=== PATIENT | male | born 1960 | race Caucasian/White ===

== ENCOUNTER 2021-10-01 04:03 | Emergency (ER) | payer BC ==
[~2021-10-01] VITALS: Ht 175.3 cm; Wt 95.5 kg
[2021-10-01 05:12] LABS: BASO # 0.04 K/mm3 (0.02-0.10); EOS # 0.14 K/mm3 (0.04-0.40); EOS % 2.2 % (0.0-4.0); HEMATOCRIT 44.7 % (42.0-52.0); HEMOGLOBIN 14.5 g/dL (13.5-18.0); MEAN CELL VOLUME 97 fl (78-100); MEAN CORPUSCULAR HEMOGLOBIN 31 pg (27-31); MEAN CORPUSCULAR HGB CONC 32 g/dL (33-37); MEAN PLATELET VOLUME 9.5 fl (7.4-10.4); MONO # 0.55 K/mm3 (0.20-0.80); NEU # 4.32 K/mm3 (1.40-6.50); PLATELET COUNT 300 K/mm3 (130-400); RED BLOOD COUNT 4.63 M/mm3 (4.20-5.60); RED CELL DISTRIBUTION WIDTH 12.7 % (11.5-14.5); WHITE BLOOD COUNT 6.3 K/mm3 (4.8-10.8)
[2021-10-01 05:20] LABS: ALBUMIN 3.4 g/dL (3.4-4.8)
[2021-10-01 05:21] LABS: POTASSIUM 4.1 mmol/L (3.5-5.1)
[2021-10-01 05:22] LABS: CALCIUM 8.7 mg/dL (8.3-10.5)
[2021-10-01 05:23] LABS: TOTAL PROTEIN 6.2 g/dL (6.2-8.1)
[2021-10-01 05:25] LABS: TOTAL BILIRUBIN 0.3 mg/dL (0.2-1.2)
[2021-10-01 06:19] LABS: URINE WBC 0 /hpf (0-3)
[2021-10-01 06:46] LABS: URINE APPEARANCE HAZY; URINE COLOR YELLOW
[2021-10-01 06:47] LABS: PH-URINE 7.5 (5.0 - 8.0); URINE BILIRUBIN NEGATIVE (NEGATIVE); URINE BLOOD TRACE (NEGATIVE); URINE GLUCOSE NEGATIVE (NEGATIVE); URINE KETONE 1+ (NEGATIVE); URINE LEUKOCYTE ESTERASE NEGATIVE (NEGATIVE); URINE NITRATE NEGATIVE (NEGATIVE); URINE PROTEIN(semi-quant) NEGATIVE (NEGATIVE); URINE UROBILINOGEN NORMAL (NORMAL)
[2021-10-01] MEDS ORDERED: MOTION SICKNESS25 M2 PO (06:57)
[2021-10-01 07:15] VITALS: BP 154/93
== END 2021-10-01 07:15 | disposition home or self-care (01) ==
LOC: ED 04:03
PROVIDERS: Physician Assistant
DX: E86.0 Dehydration (principal); I10 Essential (primary) hypertension; R42 Dizziness and giddiness
CPT/HCPCS: J7030

== ENCOUNTER 2022-03-05 14:57 | Observation (INO) | payer BC ==
[~2022-03-05] VITALS: Ht 175.3 cm; Wt 95.3 kg
[~2022-03-05 14:57] MED LIST: MOTION SICKNESS25 M2 PO
[2022-03-05 16:05] LABS: BASO # 0.02 K/mm3 (0.02-0.10); EOS # 0.14 K/mm3 (0.04-0.40); EOS % 0.9 % (0.0-4.0); HEMATOCRIT 45.4 % (42.0-52.0); HEMOGLOBIN 14.7 g/dL (13.5-18.0); LYMPH# 1.82 K/mm3 (1.50-4.00); MEAN CELL VOLUME 96 fl (78-100); MEAN CORPUSCULAR HEMOGLOBIN 31 pg (27-31); MEAN CORPUSCULAR HGB CONC 32 g/dL (33-37); MEAN PLATELET VOLUME 9.7 fl (7.4-10.4); MONO # 1.04 K/mm3 (0.20-0.80); NEU # 13.26 K/mm3 (1.40-6.50); PLATELET COUNT 340 K/mm3 (130-400); RED BLOOD COUNT 4.73 M/mm3 (4.20-5.60); RED CELL DISTRIBUTION WIDTH 12.7 % (11.5-14.5); WHITE BLOOD COUNT 16.5 K/mm3 (4.8-10.8)
[2022-03-05 16:16] LABS: ALBUMIN 3.6 g/dL (3.4-4.8)
[2022-03-05 16:17] LABS: POTASSIUM 4.1 mmol/L (3.5-5.1)
[2022-03-05 16:18] LABS: CALCIUM 9.1 mg/dL (8.3-10.5)
[2022-03-05 16:19] LABS: TOTAL PROTEIN 6.4 g/dL (6.2-8.1)
[2022-03-05 16:21] LABS: TOTAL BILIRUBIN 0.7 mg/dL (0.2-1.2)
[2022-03-05 20:42] VITALS: BP 127/85
[2022-03-05 20:58] LABS: URINE APPEARANCE CLEAR; URINE COLOR YELLOW; URINE PROTEIN(semi-quant) 1+ (NEGATIVE)
[2022-03-05 20:59] LABS: URINE BILIRUBIN NEGATIVE (NEGATIVE); URINE BLOOD 250 ery/uL (NEGATIVE); URINE GLUCOSE NEGATIVE (NEGATIVE); URINE KETONE 1+ (NEGATIVE); URINE LEUKOCYTE ESTERASE NEGATIVE (NEGATIVE); URINE MUCUS PRESENT (NOT PRESENT); URINE NITRATE NEGATIVE (NEGATIVE); URINE UROBILINOGEN NORMAL (NORMAL)
[2022-03-05 22:24] VITALS: BP 103/70
[2022-03-05 23:25] VITALS: BP 108/75
[2022-03-06 05:51] VITALS: BP 115/73
[2022-03-06 08:15] LABS: HEMATOCRIT 40.1 % (42.0-52.0); HEMOGLOBIN 12.8 g/dL (13.5-18.0); MEAN CELL VOLUME 97 fl (78-100); MEAN CORPUSCULAR HEMOGLOBIN 31 pg (27-31); MEAN CORPUSCULAR HGB CONC 32 g/dL (33-37); MEAN PLATELET VOLUME 9.6 fl (7.4-10.4); PLATELET COUNT 306 K/mm3 (130-400); RED BLOOD COUNT 4.12 M/mm3 (4.20-5.60)
[2022-03-06 08:51] LABS: BAND 1 % (0-10); LYMPHOCYTE 10 % (20-51); MONOCYTE 8 % (3-10); NEUTROPHILS 80 % (42-75)
[2022-03-06 09:49] VITALS: BP 107/68
[2022-03-06 09:50] LABS: URINE APPEARANCE CLOUDY; URINE COLOR YELLOW-RED
[2022-03-06 09:51] LABS: URINE BILIRUBIN NEGATIVE (NEGATIVE); URINE BLOOD TRACE (NEGATIVE); URINE GLUCOSE 50 mg/dL (NEGATIVE); URINE KETONE 1+ (NEGATIVE); URINE LEUKOCYTE ESTERASE NEGATIVE (NEGATIVE); URINE MUCUS PRESENT (NOT PRESENT); URINE NITRATE NEGATIVE (NEGATIVE); URINE PROTEIN(semi-quant) TRACE (NEGATIVE); URINE UROBILINOGEN NORMAL (NORMAL)
[2022-03-06 15:20] VITALS: BP 117/67
[2022-03-06 18:09] VITALS: BP 118/73
[2022-03-06 21:38] VITALS: BP 124/78
[2022-03-07 06:16] VITALS: BP 117/70
[2022-03-07 09:40] VITALS: BP 115/76
[2022-03-07] MEDS ORDERED: TIZANIDINE HYDRO4 M1 PO (11:51)
[2022-03-07] MEDS ORDERED: PERCOCET 325 MG1 TA2 PO ×2 (11:52→11:58)
[2022-03-07] MEDS ORDERED: MIRALAX119 GM PO (11:58)
[2022-03-07] MEDS ORDERED: TIZANIDINE HYDRO4 MG PO (11:58)
== END 2022-03-07 13:45 | disposition home or self-care (01) ==
LOC: ED 14:57 → MED/SURG 19:47
PROVIDERS: Nurse Practitioner; ADMIT Family Medicine
DX: S30.1XXA Contusion of abdominal wall, initial encounter (principal); S30.0XXA Contusion of lower back and pelvis, initial encounter; S22.42XA Multiple fractures of ribs, left side, initial encounter for closed fracture; S79.912A Unspecified injury of left hip, initial encounter; V86.95XA Unspecified occupant of 3- or 4- wheeled all-terrain vehicle (ATV) injured in nontraffic accident, initial encounter
CPT/HCPCS: G0378; J1885; J2405; J3010; J7120; Q9967